=== PATIENT | male | born 1960 | race Caucasian/White ===

== ENCOUNTER 2017-05-06 21:34 | Emergency (ER) | payer OTHER ==
[~2017-05-06] VITALS: Ht 172.7 cm; Wt 79.0 kg
[~2017-05-06 21:34] MED LIST: AMBIEN10 MG PO; ANAFRANIL50 MG PO; ASPIR-LOW81 MG PO; BENZTROPINE ME0.5 MG PO; CLOMIPRAMINE HC50 MG PO; CLONAZEPAM0.5 MG PO; FLUOXETINE HCL40 MG PO; GEODON40 MG PO; GLIPIZIDE5 MG PO; INVOKANA300 MG PO; LISINOPRIL2.5 MG PO; LORAZEPAM0.5 MG PO; PRAVACHOL10 MG PO; PRAVASTATIN SOD20 MG PO; ZIPRASIDONE HCL40 MG PO; ZIPRASIDONE HCL80 MG PO; ZOFRAN ODT4 MG PO; ZOFRAN4 MG PO
[2017-05-06 21:38] VITALS: BP 117/75
[2017-05-06] MEDS ORDERED: AUGMENTIN875 MG PO (23:45)
== END 2017-05-07 00:28 | disposition home or self-care (01) ==
LOC: EME 21:34
DX: J02.9 Acute pharyngitis, unspecified (principal)
CPT/HCPCS: 70360; 87651 90; 99281; 99284

== ENCOUNTER 2017-07-12 22:15 | Emergency (ER) | payer OTHER ==
[~2017-07-12] VITALS: Ht 175.3 cm; Wt 81.3 kg
[~2017-07-12 22:15] MED LIST changes: +AUGMENTIN875 MG PO
[2017-07-12 22:48] LABS: ADD MIUA? NO; BILIRUBIN NEGATIVE; BLOOD NEGATIVE; COLOR STRAW ((YELLOW)); GLUCOSE (STRIP) >=500; KETONES NEGATIVE; LEUKOCYTES NEGATIVE; NITRITE NEGATIVE; PROTEIN (STRIP) NEGATIVE; SPECIFIC GRAVITY 1.032 (1.000-1.030); UCUL ADDED? NO; UROBILINOGEN 0.2 MG/DL (0.2-1.0)
[2017-07-13] MEDS ORDERED: KEFLEX500 MG PO (01:32)
[2017-07-13] MEDS ORDERED: PYRIDIUM200 MG PO (01:32)
[2017-07-13 01:48] VITALS: BP 142/83
[2017-07-13 01:50] LABS: POINT-OF-CARE METER ID UU13113800
[2017-07-13 13:39] LABS: CHLAMYDIA TRACHOMATIS NEGATIVE; NEISSERIA GONORRHOEAE NEGATIVE
== END 2017-07-13 01:49 | disposition home or self-care (01) ==
LOC: EME 22:15
PROVIDERS: Physician Assistant
DX: R30.0 Dysuria (principal); E11.65 Type 2 diabetes mellitus with hyperglycemia; Z79.84 Long term (current) use of oral hypoglycemic drugs; Z79.82 Long term (current) use of aspirin
CPT/HCPCS: 81003; 82948; 87086; 87491; 87591; 99281; 99283